=== PATIENT | female | born 1955 | race Caucasian/White ===

== ENCOUNTER 2019-01-11 06:14 | Emergency (ER) | payer OTHER ==
[~2019-01-11] VITALS: Ht 157.5 cm; Wt 54.4 kg
[2019-01-11 06:18] VITALS: BP 145/49
--- NOTE | 2019-01-11 06:44 | PHYS DOC ---
Past History Past Medical History: Kidney Stones Past Surgical History: Other Additional Past Surgical Histo: kidney stones Additional Smoking Information: Non-Smoker Alcohol Use: None Drug Use: None Adult General Chief Complaint Chief Complaint: FOOT INJURY PAIN HPI HPI Patient is a 63 y/o female presents with left ankle/foot pain after tripping it on a curb at 0500. She complains that ankle is non-weight bearing and has significant swelling. Pain is primarily located on the left lateral malleolus but does not radiate up her leg. Severity is rated at a 10/10. Denies LOC and head trauma. Denies other complaint. Patient does report history of recent toe fractures for which patient was previously placed in walking boot and had used crutches. Review of Systems Review of Systems Constitutional: Denies fever or chills Eyes: Denies redness or eye pain HENT: Denies nasal congestion or sore throat Respiratory: Denies cough or shortness of breath Cardiovascular: Denies chest pain or palpitations GI: Denies abdominal pain, nausea, or vomiting : Denies dysuria or hematuria Musculoskeletal: Reports left ankle/foot pain w/ swelling Integument: Denies rash or skin lesions Neurologic: Denies headache, focal weakness or sensory changes Complete systems were reviewed and found to be within normal limits, except as documented in this note. Allergies Allergies Allergies Coded Allergies Type Severity Reaction Last Updated Verified Penicillins Allergy Severe Swelling 01/11/19 Yes sulfamethoxazole Allergy Severe Swelling 01/11/19 Yes trimethoprim Allergy Severe Swelling 01/11/19 Yes Estrogens Allergy Unknown 01/11/19 Yes furosemide Allergy Unknown 01/11/19 Yes Physical Exam Physical Exam Constitutional: Well developed, well nourished, mild distress, non-toxic appearance Eyes: Conjunctiva normal, no discharge Cardiovascular: Heart rate normal, regular rhythm Lungs & Thorax: Bilateral breath sounds clear to auscultation, no wheezing Skin: Warm, dry, no erythema, no rash Extremities: Tenderness to palpation on left ankle to lateral malleolus, tenderness to proximal left 5th metatarsal, anterior drawer negative, limited ROM, mild edema, 2+ pedal pulses, cap refill <2 sec Neurologic: Alert and oriented X 3, normal motor function, normal sensory function, no focal deficits noted Psychologic: Affect normal, judgement normal Current Patient Data Vital Signs Vital Signs Date Time Temp Pulse Resp B/P (MAP) Pulse Ox O2 Delivery O2 Flow Rate FiO2 01/11/19 06:18 98.0 74 18 96 Room Air EKG EKG [] Radiology/Procedures Radiology/Procedures PROCEDURE: FOOT LEFT 3V and ANKLE LEFT 3V Indication: Pain TECHNIQUE: 3 views of the left ankle and 3 views of the left foot COMPARISON: None FINDINGS: Ankle: No acute fracture or dislocation. Mild ankle soft tissue swelling noted. Ankle mortise is intact. Foot: Nondisplaced fracture is seen of the proximal phalanx of the fourth toe. Questionable fracture is seen of the head of the proximal phalanx of the fifth toe. IMPRESSION: As above. Electronically signed by: Naldo Cervantes DO (01/11/2019 7:00 AM) [facility] Course & Med Decision Making Course & Med Decision Making Pt is a 63 y/o female who presents with left ankle/foot pain after tripping on a curb. Denies LOC and head trauma. Pt given Ketorolac IM for pain. ICE applied. XR of left foot and left ankle without fracture of metatarsal/tarsal/or distal tib/fib. Previously seen fractures of 4th and 5th proximal phalanx noted. ANGELICA applied. Patient instructed on RICE and instructed to continue use of walking boot and crutches. Patient stable for discharge with outpatient follow-up with PCP/podiatry. Discussed findings and plan with patient, who acknowledges understanding and agreement. Dragon Disclaimer Dragon Disclaimer This electronic medical record was generated, in whole or in part, using a voice recognition dictation system. Splinting Splinting : Location: Left ankle Pre-Made Type: ANGELICA bandage Pre-Proc Neuro Vasc Exam: normal Post-Proc Neuro Vasc Exam: normal, unchanged from pre-exam Departure Departure: Impression: Primary Impression: Left ankle sprain Additional Impression: Hx of fracture of toe Disposition: 01 HOME, SELF-CARE Condition: STABLE Referrals: NON,STAFF (PCP) Patient Instructions: Ankle Sprain, [id number], Crutch Use, [id number] Additional Instructions: Use walking boot and crutches you have a home. Your know toe fractures (4th and 5th toes) are still apparent. Please follow closely with your marketing project coordinator. Use over the counter Tylenol and Naproxen (Aleve) as needed. Problem Qualifiers Primary Impression: Left ankle sprain Encounter type: initial encounter Involved ligament of ankle: unspecified ligament Qualified Codes: S93.402A - Sprain of unspecified ligament of left ankle, initial encounter JESSE COTA DO Jan 11, 2019 06:44
[2019-01-11] MEDS ORDERED: KETOROLAC 30 MG/ML VIAL. IM ONE (06:45)
--- NOTE | 2019-01-11 07:03 | RAD ---
Indication: Pain TECHNIQUE: 3 views of the left ankle and 3 views of the left foot COMPARISON: None FINDINGS: Ankle: No acute fracture or dislocation. Mild ankle soft tissue swelling noted. Ankle mortise is intact. Foot: Nondisplaced fracture is seen of the proximal phalanx of the fourth toe. Questionable fracture is seen of the head of the proximal phalanx of the fifth toe. IMPRESSION: As above. Electronically signed by: Naldo Cervantes DO (01/11/2019 7:00 AM) [facility]
--- NOTE | 2019-01-11 07:03 | RAD ---
Indication: Pain TECHNIQUE: 3 views of the left ankle and 3 views of the left foot COMPARISON: None FINDINGS: Ankle: No acute fracture or dislocation. Mild ankle soft tissue swelling noted. Ankle mortise is intact. Foot: Nondisplaced fracture is seen of the proximal phalanx of the fourth toe. Questionable fracture is seen of the head of the proximal phalanx of the fifth toe. IMPRESSION: As above. Electronically signed by: Naldo Cervantes DO (01/11/2019 6:59 AM) [facility]
== END 2019-01-11 07:20 | disposition home or self-care (01) ==
LOC: ER 06:14
DX: S93.402A Sprain of unspecified ligament of left ankle, initial encounter (principal); Z87.81 Personal history of (healed) traumatic fracture; Z87.442 Personal history of urinary calculi; Z88.0 Allergy status to penicillin; Z88.2 Allergy status to sulfonamides; Z88.8 Allergy status to other drugs, medicaments and biological substances; W22.8XXA Striking against or struck by other objects, initial encounter; Y93.89 Activity, other specified; Y92.89 Other specified places as the place of occurrence of the external cause; Y99.8 Other external cause status
CPT/HCPCS: 73610; 73630; 96372; 99284; J1885